=== PATIENT | male | born 1945 | race Caucasian/White ===

== ENCOUNTER 2017-07-06 21:42 | Observation (INO) | payer MEDICARE, OTHER ==
[~2017-07-06] VITALS: Ht 175.3 cm; Wt 51.3 kg
[2017-07-06] MEDS ORDERED: NS IV 1000 ML 1,000 ML IV ONE (21:52)
[2017-07-06 21:59] LABS: BASOPHILS % (AUTO) 0 % (0-10); EOSINOPHILS % (AUTO) 0 % (0-10); LYMPHOCYTES # (AUTO) 0.9 X 10^3 (1.0-4.0); LYMPHOCYTES % (AUTO) 8 % (12-44); MEAN CORPUSCULAR HEMOGLOBIN 27 PG (25-34); MEAN CORPUSCULAR HGB CONC 33 G/DL (32-36); MEAN CORPUSCULAR VOLUME 84 FL (80-99); MEAN PLATELET VOLUME 10.9 FL (7.4-10.4); MONOCYTES # (AUTO) 0.7 X 10^3 (0.0-1.0); MONOCYTES % (AUTO) 7 % (0-12); NEUTROPHILS # (AUTO) 9.1 X 10^3 (1.8-7.8); NEUTROPHILS % (AUTO) 85 % (42-75); PLATELET COUNT 401 10^3/uL (130-400); RED BLOOD COUNT 2.28 10^6/uL (4.35-5.85); RED CELL DISTRIBUTION WIDTH 13.7 % (10.0-14.5); WHITE BLOOD COUNT 10.7 10^3/uL (4.3-11.0)
[2017-07-06 22:08] LABS: INR 1.2 (0.8-1.4); PROTHROMBIN TIME PATIENT 14.8 SEC (12.2-14.7)
[2017-07-06 22:14] LABS: ANION GAP 17 MMOL/L (5-14); BLOOD UREA NITROGEN 17 MG/DL (7-18); BUN/CREATININE RATIO 18; CALCIUM 8.6 MG/DL (8.5-10.1); CARBON DIOXIDE 18 MMOL/L (21-32); CHLORIDE 88 MMOL/L (98-107); CREATININE SERUM 0.93 MG/DL (0.60-1.30); GFR ESTIMATED > 60; GLUCOSE 193 MG/DL (70-105); POTASSIUM 3.9 MMOL/L (3.6-5.0)
[2017-07-06 22:19] LABS: SODIUM 123 MMOL/L (135-145)
[2017-07-06 23:15] VITALS: BP 117/47
[2017-07-06 23:59] VITALS: BP 110/57
[2017-07-07] VITALS (11 sets, daily range): BP systolic 100–125; BP diastolic 57–77
[2017-07-07] MEDS: NS IV 1000 ML 1,000 ML IV SCH ×2 (01:45→06:11)
--- NOTE | 2017-07-07 03:43 | ED EENT ---
History of Present Illness General Chief Complaint: Dental Problems/Pain Stated Complaint: POST OP BLEED,SYNCOPE,ORAL CANCER,ANEMIA Nursing Triage Note: PT HAD BIOPSY FOR ORAL CANCER AT 1 WEEK AGO. HE BEGAN BLEEDING PROFUSELY AT APPROX 5 TONIGHT. HE REPORTS HE FELT FAINT WALKING TO THE BATHROOM ET FELL. NO LOC. TO ER PER EMS. DENIES HEAD INJURY. Source: patient (PT COMMUNINCATES BY WRITING OR BY NODDING HEAD YES/NO), EMS, other (DR. OTT AND DR. BAEZA), spouse Exam Limitations: physical impairment History of Present Illness Time seen by provider: 21:44 Initial Comments PT ARRIVES VIA EMS FROM HOME--DR. OTT AND DR. 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 PT IS REPORTEDLY SUPPOSED TO HAVE CHEMO NEXT WEEK TONIGHT, HE WAS FOUND BY HIS ON THE FLOOR, PASSED OUT, WITH PROFUSE BLEEDING FROM HIS MOUTH--REPORTEDLY, THE BLEEDING BEGAN BEFORE HE PASSED OUT-- WAS WALKING TO THE BATHROOM AND HE FELT FAINT AND FELL/PASSED OUT ON THE FLOOR. OCCURRED AROUND 5 TONIGHT PT WITH LARGE AMOUNT OF BLOOD AT THE SCENE--EMS ESTIMATE AT LEAST 250 ML OF BLOOD ON THE FLOOR, PLUS UNKNOWN AMOUNT OF BLOOD IN THE TOILET, AND ON PT PT ALSO HAS CLOTHING SATURATED WITH BLOOD AND MULTIPLE LARGE BLOOD CLOTS ON HIS CLOTHING, WELL HIS ENTIRE FACE PT DENIES PAIN ANYWHERE NO HEADACHE NO VISION CHANGES DOES HAVE SOME DIZZINESS-HAD BEFORE HE PASSED OUT PT IS NOT ON ASPIRIN OR BLOOD THINNERS. NO HISTORY OF BLEEDING PROBLEMS. PCP: DR. OTT Allergies and Home Medications Allergies Coded Allergies: No Known Drug Allergies (Unverified , 07/06/17) Home Medications No Active Prescriptions or Reported Meds Review of Systems Constitutional: see HPI, dizziness (SYNCOPE) Eyes: No Symptoms Reported Ears: No Symptoms Reported Nose: no symptoms reported Mouth: see HPI Throat: no symptoms reported Respiratory: no symptoms reported Cardiovascular: see HPI, No chest pain, No palpitations, syncope Gastrointestinal: no symptoms reported, No nausea, No vomiting Musculoskeletal: no symptoms reported Skin: no symptoms reported Neurological: See HPI (SYNCOPE), Denies Headache, Denies Numbness, Denies Paresthesia, Denies Seizure, Denies Tingling, Denies Tremors, Denies Weakness Hematologic/Lymphatic: See HPI Immunological/Allergic: no symptoms reported Past Lclpbly-Pmflkx-Wdmfzi Hx Patient Social History Alcohol Use: Rarely Uses Number of Drinks Today: 0 Recreational Drug Use: No Smoking Status: Never a Smoker Recent Foreign Travel: No Contact w/Someone Who Travel: No Recent Infectious Disease Expo: No Recent Hopitalizations: No Seasonal Allergies Seasonal Allergies: No Surgeries History of Surgeries: Yes (TONGUE BIOPSY) Respiratory History of Respiratory Disorde: No Currently Using CPAP: No Cardiovascular History of Cardiac Disorders: No Neurological History of Neurological Disord: No Genitourinary History of Genitourinary Disor: No Gastrointestinal History of Gastrointestinal Di: No Musculoskeletal History of Musculoskeletal Dis: No Endocrine History of Endocrine Disorders: No HEENT History of HEENT Disorders: Yes (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) 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 Did You Recieve Any Treatments: Yes (BIOPSY) Type of Tx Receive: Surgical Intervention Cancer Comment: SCHEDULED FOR CHEMO AND RADIATION IN FUTURE Psychosocial History of Psychiatric Problem: No Integumentary History of Skin or Integumenta: No Blood Transfusions History of Blood Disorders: No Adverse Reaction to a Blood Tr: No Family Medical History Family Medial History: Cardiac disorder 19 FATHER Physical Exam Vital Signs Vital Sign - Last 12Hours 07/06/17 07/06/17 21:46 23:59 Temp 95.3 Pulse 82 Resp 14 B/P (MAP) 110/53 (72) Pulse Ox 100 O2 Delivery Nasal Cannula O2 Flow Rate 2.00 General Appearance: thin, other (PALE, FACE AND CLOTHING SATURATED WITH BLOOD AND MULTIPLE LARGE CLOTS. SOMEWHAT LETHARGIC) Eyes: bilateral eye normal inspection, bilateral eye PERRL, bilateral eye EOMI Mouth/Throat: other (PT IS NOT TALKING, BUT IS COMMUNICATING BY WRITING. LARGE AMOUNT OF BLOOD IN MOUTH. BIOPSY SITE TO UNDERSIDE OF RIGHT SIDE OF TONGUE IDENTIFIED. NO ACTIVE BLEEDING AT THIS TIME. MOUTH CLEARED BY GENTLE SWISHING WITH STERILE WATER, AND BY GENTLE SUCTION. 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, no motor/sensory deficits, alert Skin: warm/dry, pallor Progress/Results/Core Measures Results/Orders Lab Results Laboratory Tests Test 07/06/17 21:45 Range/Units White Blood Count 10.7 4.3-11.0 10^3/uL Red Blood Count 2.28 L 4.35-5.85 10^6/uL Hemoglobin 6.2 *L 13.3-17.7 G/DL Hematocrit 19 *L 40-54 % Mean Corpuscular Volume 84 80-99 FL Mean Corpuscular Hemoglobin 27 25-34 PG Mean Corpuscular Hemoglobin Concent 33 32-36 G/DL Red Cell Distribution Width 13.7 10.0-14.5 % Platelet Count 401 H 130-400 10^3/uL Mean Platelet Volume 10.9 H 7.4-10.4 FL Neutrophils (%) (Auto) 85 H 42-75 % Lymphocytes (%) (Auto) 8 L 12-44 % Monocytes (%) (Auto) 7 0-12 % Eosinophils (%) (Auto) 0 0-10 % Basophils (%) (Auto) 0 0-10 % Neutrophils # (Auto) 9.1 H 1.8-7.8 X 10^3 Lymphocytes # (Auto) 0.9 L 1.0-4.0 X 10^3 Monocytes # (Auto) 0.7 0.0-1.0 X 10^3 Eosinophils # (Auto) 0.0 0.0-0.3 10^3/uL Basophils # (Auto) 0.0 0.0-0.1 10^3/uL Prothrombin Time 14.8 H 12.2-14.7 SEC INR Comment 1.2 0.8-1.4 Activated Partial Thromboplast Time 28 24-35 SEC Sodium Level 123 *L 135-145 MMOL/L Potassium Level 3.9 3.6-5.0 MMOL/L Chloride Level 88 L 98-107 MMOL/L Carbon Dioxide Level 18 L 21-32 MMOL/L Anion Gap 17 H 5-14 MMOL/L Blood Urea Nitrogen 17 7-18 MG/DL Creatinine 0.93 0.60-1.30 MG/DL Estimat Glomerular Filtration Rate > 60 BUN/Creatinine Ratio 18 Glucose Level 193 H 70-105 MG/DL Calcium Level 8.6 8.5-10.1 MG/DL My Orders Orders - BRODY GANNON DO Saline Lock/Iv-Start (07/06/17 21:52) Basic Metabolic Panel (07/06/17 21:52) Cbc With Automated Diff (07/06/17 21:52) Protime With Inr (07/06/17 21:52) Partial Thromboplastin Time (07/06/17 21:52) Saline Lock/Iv-Start (07/06/17 21:52) Saline Lock/Iv-Start (07/06/17 21:52) Ns Iv 1000 Ml (Sodium Chloride 0.9%) (07/06/17 21:52) Orthostatic Vital Signs (Adult (07/06/17 21:52) Red Cells Leukocytes Reduced (07/06/17 22:07) Type And Screen (07/06/17 22:07) Medications Given in ED Current Medications Medications Dose Ordered Sig/Kobe Route Start Time Stop Time Status Last Admin Dose Admin Sodium Chloride 1,000 ml @ 0 mls/hr Q0M ONCE IV 07/06/17 21:52 07/06/17 21:54 DC 07/06/17 22:22 1,000 MLS/HR Vital Signs/I&O Vital Sign - Last 12Hours 07/06/17 07/06/17 07/06/17 07/07/17 21:46 23:35 23:59 00:20 Temp 95.3 96.8 97.1 Pulse 82 60 69 66 Resp B/P (MAP) 110/53 (72) 110/57 100/59 Pulse Ox 100 100 O2 Delivery Nasal Cannula Nasal Cannula O2 Flow Rate 2.00 2.00 07/07/17 07/07/17 07/07/17 07/07/17 00:30 01:00 01:41 02:12 Temp 96.4 96.4 Pulse 58 59 59 Resp 17 B/P (MAP) 101/58 109/57 Pulse Ox 100 100 O2 Delivery Nasal Cannula Nasal Cannula Nasal Cannula O2 Flow Rate 2.00 2.00 2.00 07/07/17 02:30 Temp 96.5 Pulse 60 Resp 17 B/P (MAP) 111/61 Pulse Ox 98 O2 Delivery Nasal Cannula O2 Flow Rate 2.00 Blood Pressure Mean: 78 Progress Note : Progress Note NO DETERIORATION IN PT'S CONDITION NO RE-BLEEDING NOTED VITALS REMAINED STABLE Departure Communication (Admissions) Progress Notes DISCUSSED WITH DR. OTT, PRESENT IN ER ON PT'S ARRIVAL. HE ACCEPTS PT FOR ADMIT. WILL CONSULT DR. ETIENNE [id number]--SPOKE WITH Taty COUGHLIN NP MAINTENANCE PLUMBER FOR DR. ETIENNE. INFORMED HER OF CONSULT. HE WILL SEE IN AM, UNLESS BLEEDING STARTS AGAIN. Impression Impression: Primary Impression: POST OP BLEEDING FROM TONGUE Additional Impressions: Squamous cell cancer of tongue Anemia due to acute blood loss SYNCOPE DUE TO BLOOD LOSS/VOLUME DEPLETION Hyponatremia Hyperglycemia Disposition: ADMITTED INPATIENT Condition: Stable Admissions Decision to Admit Reason: Admit from ER (General) Decision to Admit/Date: Jul 06, 2017 Time/Decision to Admit Time: 22:00 Departure-Patient Inst. Referrals: FABIAN OTT DO (PCP/Family) Primary Care Physician Scripts No Active Prescriptions or Reported Meds BRODY GANNON DO Jul 07, 2017 03:43
[2017-07-07 06:32] LABS: ALANINE AMINOTRANSFERASE 13 U/L (0-55); ALBUMIN 2.5 GM/DL (3.2-4.5); ANION GAP 9 MMOL/L (5-14); ASPARTATE AMINO TRANSFERASE 12 U/L (5-34); BILIRUBIN,TOTAL 0.7 MG/DL (0.1-1.0); BLOOD UREA NITROGEN 19 MG/DL (7-18); BUN/CREATININE RATIO 28; CALCIUM 7.9 MG/DL (8.5-10.1); CARBON DIOXIDE 22 MMOL/L (21-32); CHLORIDE 96 MMOL/L (98-107); CREATININE SERUM 0.69 MG/DL (0.60-1.30); GFR ESTIMATED > 60; GLUCOSE 93 MG/DL (70-105); POTASSIUM 4.1 MMOL/L (3.6-5.0); SODIUM 127 MMOL/L (135-145); TOTAL PROTEIN 4.2 GM/DL (6.4-8.2)
[2017-07-07 06:41] LABS: BASOPHILS % (AUTO) 0 % (0-10); EOSINOPHILS % (AUTO) 0 % (0-10); LYMPHOCYTES # (AUTO) 0.4 X 10^3 (1.0-4.0); LYMPHOCYTES % (AUTO) 4 % (12-44); MEAN CORPUSCULAR HEMOGLOBIN 27 PG (25-34); MEAN CORPUSCULAR HGB CONC 34 G/DL (32-36); MEAN CORPUSCULAR VOLUME 81 FL (80-99); MEAN PLATELET VOLUME 9.8 FL (7.4-10.4); MONOCYTES # (AUTO) 0.7 X 10^3 (0.0-1.0); MONOCYTES % (AUTO) 8 % (0-12); NEUTROPHILS # (AUTO) 8.4 X 10^3 (1.8-7.8); NEUTROPHILS % (AUTO) 88 % (42-75); PLATELET COUNT 270 10^3/uL (130-400); RED BLOOD COUNT 2.49 10^6/uL (4.35-5.85); RED CELL DISTRIBUTION WIDTH 14.4 % (10.0-14.5); WHITE BLOOD COUNT 9.6 10^3/uL (4.3-11.0)
--- NOTE | 2017-07-07 06:54 | Progress Note-Standard ---
Standard Progress Note Progress Notes/Assess & Plan Date Seen by Provider: Jul 07, 2017 Time Seen by Provider: 06:30 Progress/Assessment & Plan ENT-Meri patient seen and evaluated Significant bleed last PM- Hgb-6.8 despite 2 units of pRBC's No active bleeding seen jigna admission Exam: Oral Cavity-tongue enalrged-biopsy site seen laterally on right airway intact-on palpation extension of tumor felt in neck as well-large concerend about erosion into a large vessel or potentially GI bleed as well will contacat [facility] for records-have no idea what HGB was to start with overall-would be best to see if we can get back to [facility]-if there is erosion into a large vessel there is nothing that can be done here locally MARCELLA ETIENNE MD Jul 07, 2017 6:54 am
[2017-07-07] MEDS ORDERED: INFLUENZA TRIvalent 2017-2018 0.5 ML/45 MCG SYR IM ONE (07:15)
--- NOTE | 2017-07-07 07:59 | History & Physicial ---
History of Present Illness History of Present Illness Reason for visit/HPI patient episode of syncope with blood coming from his mouth. EMS stated he was 250 mils approximately.. Patient sent to emergency room. Patient's hemoglobin 6.2. Week ago patient's hemoglobin was 9.8. Patient has history of squamous cell tongue cancer. Patient seen by ENT. ENT and myself feel patient needs to go to a tertiary center. We'll call [facility] for transfer Date of Admission Jul 06, 2017 at 22:00 Time Seen by Provider: 07:45 I consulted on this patient on 07/07/17 07:54 Attending Physician Carlos Ott DO Admitting Physician Carlos Ott DO Consult Allergies and Home Medications Allergies Coded Allergies: No Known Drug Allergies (Unverified , 07/06/17) Home Medications No Active Prescriptions or Reported Meds Past Fpthtdw-Xufhch-Yddjqg Hx Patient Social History Marrital Status: Employed/Student: unemployed Alcohol Use: Rarely Uses Number of Drinks Today: 0 Recreational Drug Use: No Smoking Status: Never a Smoker Physical Abuse Screen: No Sexual Abuse: No Recent Foreign Travel: No Contact w/other who traveled: No Recent Hopitalizations: No Recent Infectious Disease Expo: No Seasonal Allergies Seasonal Allergies: No Surgeries Yes (TONGUE BIOPSY) Respiratory No Currently Using CPAP: No Cardiovascular No Neurological No Genitourinary No Gastrointestinal No Musculoskeletal No Endocrine History of Endocrine Disorders: No HEENT History of HEENT Disorders: Yes (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) Cancer Yes (TONGUE) Oral Did You Recieve Any Treatments: Yes (BIOPSY) Type of Treatment: Surgical Intervention Cancer Comment: SCHEDULED FOR CHEMO AND RADIATION IN FUTURE Psychosocial History of Psychiatric Problem: No Integumentary History of Skin or Integumenta: No Blood Transfusions History of Blood Disorders: No Adverse Reaction to a Blood Tr: No Family Medical History Family Hx: Cardiac disorder 19 FATHER Constitutional: malaise, weakness, other (lung cancer) EENTM: other (tongue cancer) Respiratory: no symptoms reported Cardiovascular: no symptoms reported Gastrointestinal: no symptoms reported Genitourinary: no symptoms reported Physical Exam Vital Signs Vital Sign - Last 12Hours 07/06/17 07/06/17 07/06/17 21:46 23:00 23:15 Temp 95.3 Pulse 82 Resp 14 B/P (MAP) 110/53 (72) Pulse Ox 98 O2 Delivery Room Air O2 Flow Rate 2.00 Capillary Refill : Less Than 3 Seconds General Appearance: No Apparent Distress, Thin Eyes: Bilateral Eye Normal Inspection HEENT: Other (abnormal time, cervical lymph node) Neck: Other (cervical lymph nodes) Respiratory: Chest Non Tender, Lungs Clear, No Accessory Muscle Use, No Respiratory Distress Cardiovascular: Regular Rate, Rhythm, No Murmur Gastrointestinal: Non Tender, Soft Assessment/Plan Assessment and Plan postop bleed. Anemia. Squamous cell cancer of tongue Plan to discharge to [facility] transfer Problems: Clinical Quality Measures DVT/VTE Risk/Contraindication: Risk Factor Score Per Nursin RFS Level Per Nursing on Admit: 4+=Very High CARLOS OTT DO Jul 07, 2017 07:59
[2017-07-07] MEDS ORDERED: NS (IVPB) 250 ML ONE (08:02)
[2017-07-07] MEDS ORDERED: NS (IVPB) 250 ML IV ONE (08:45)
--- NOTE | 2017-07-07 09:32 | Speech Therapy Progress Note ---
Therapy Progress Note Speech pathology consult received and chart reviewed. The speech pathologist presented to the patient's room. The patient's RN requested the speech pathologist not complete swallow evaluation as the patient may be intubated and transferred to . The swallow consult will be canceled per RN request. If a swallow evaluation is appropriate in the future, please reconsult speech pathology. LISETTE SUAREZ Jul 07, 2017 09:32
--- NOTE | 2017-07-11 07:28 | Clinic Account Progress/Dx ---
Clinic Account Progress/Dx DIAGNOSIS: Time Seen by Provider: 07:10 syncope. Lung cancer area Anemia. Squamous cell carcinoma tongue. Hyponatremia. bleed from an unspecified site. Recent biopsy of tongue FABIAN OTT DO Jul 11, 2017 07:28
== END 2017-07-07 12:30 | disposition short-term general hospital (02) ==
LOC: EDUNIT# 21:42 → ER 21:43 → UNDOADMOB 22:00 → ICU 22:00 → UNDODISOB 07-07 12:36
PROVIDERS: ADMIT Family Medicine; ATTEND Family Medicine
DX: K91.840 Postprocedural hemorrhage of a digestive system organ or structure following a digestive system procedure (principal); R55 Syncope and collapse; C34.90 Malignant neoplasm of unspecified part of unspecified bronchus or lung; D62 Acute posthemorrhagic anemia; C02.9 Malignant neoplasm of tongue, unspecified; E87.1 Hypo-osmolality and hyponatremia
CPT/HCPCS: 36415; 80048; 80053; 85014; 85018; 85025; 85610; 85730; 86850; 86900; 86901; 86920; 96360

== ENCOUNTER 2017-08-08 08:02 | Emergency (ER) | payer MEDICARE ==
[~2017-08-08] VITALS: Ht 175.3 cm; Wt 49.4 kg
[2017-08-08 08:18] VITALS: BP 122/79
--- NOTE | 2017-08-08 08:22 | ED EENT ---
History of Present Illness General Stated Complaint: MOUTH BLEEDING Source: patient, spouse Exam Limitations: no limitations History of Present Illness Time seen by provider: 08:08 Initial Comments Patient presents to ER by EMS with chief complaint that about 15 minutes prior to EMSs arrival the patient was getting up to the bathroom and noticed blood coming from his mouth. 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 2 weeks ago he had a tracheostomy and PEG tube placed at the cancer center where his oncologist and surgeon are located. EMS reports the patient's vitals are normal and required no interventions other than a bag spit in and the bleeding became his hemostatic on route. Patient reports 2 weeks ago he had labs drawn that demonstrated hemoglobin of 8.1. He has no history of coronary disease, chest pain, shortness of breath presently. His next appointment is in 3 days at and [facility]. He has no nausea or vomiting. No cough or shortness of breath. Patient is on chemotherapy and reports his last dose was about 4 to 5 days ago. Allergies and Home Medications Allergies Coded Allergies: No Known Drug Allergies (Unverified , 07/06/17) Home Medications Lorazepam 1 Mg Tablet, 1 MG PO, (Reported) Ondansetron 4 Mg Tab.rapdis, 4 MG PO, (Reported) Review of Systems Constitutional: No chills, No diaphoresis, No fever Eyes: Denies Blurred Vision, Denies Drainage Ears: Denies Dizziness, Denies Pain Nose: denies clots, denies congestion Mouth: see HPI, clots, swelling Throat: denies pain, denies swelling, denies painful swallowing, other ( fenestrated trach) Respiratory: No cough, No short of breath Cardiovascular: No chest pain, No Hx of Intervention, No vascular heart diseas Gastrointestinal: No abdominal pain, No constipation, No diarrhea, No nausea, No vomiting Past Qibufvq-Snxkng-Whzkcx Hx Patient Social History Alcohol Use: Occasionally Uses (none recently) Alcohol Beverage of Choice: Wine Recreational Drug Use: No Smoking Status: Never a Smoker Recent Hopitalizations: No Seasonal Allergies Seasonal Allergies: No Surgeries History of Surgeries: Yes (TONGUE BIOPSY) Respiratory History of Respiratory Disorde: No Currently Using CPAP: No Cardiovascular History of Cardiac Disorders: No Neurological History of Neurological Disord: No Genitourinary History of Genitourinary Disor: No Gastrointestinal History of Gastrointestinal Di: No Musculoskeletal History of Musculoskeletal Dis: No Endocrine History of Endocrine Disorders: No HEENT History of HEENT Disorders: Yes (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) 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 Did You Recieve Any Treatments: Yes Type of Tx Receive: Surgical Intervention Psychosocial History of Psychiatric Problem: No Integumentary History of Skin or Integumenta: No Blood Transfusions History of Blood Disorders: No Adverse Reaction to a Blood Tr: No Family Medical History Family Medial History: Cardiac disorder 19 FATHER Physical Exam Vital Signs Vital Sign - Last 12Hours 08/08/17 08:18 Temp 98.3 Pulse 77 Resp 20 B/P (MAP) 122/79 (93) Pulse Ox 97 General Appearance: no apparent distress, thin Eyes: bilateral eye normal inspection, bilateral eye PERRL, bilateral eye EOMI Ears: bilateral ear auricle normal, bilateral ear canal normal Nose: normal inspection, active bleeding (slow), No discharge, No dried blood, other (friable nasal mucosa) Mouth/Throat: No excessive drooling, other (blood clots present in the oral cavity with a large subungual tumor and appears hemostatic at this time.) Neck: non-tender, supple, other (fenestrated tracheostomy in place) Cardiovascular: normal peripheral pulses, regular rate, rhythm, other (trace bilateral ankle edema) Respiratory: lungs clear, normal breath sounds, no respiratory distress, no accessory muscle use, other (no cough during examination) Gastrointestinal: soft, tenderness (mild to palpation around the PEG tube site) , other (pink recent percutaneous gastrostomy tube placement with scant amount of normal drainage. No erythema, induration or malodor.) Neurologic/Psychiatric: alert, normal mood/affect, oriented x 3 Progress/Results/Core Measures Results/Orders Lab Results Laboratory Tests Test 08/08/17 08:14 Range/Units White Blood Count 1.8 L 4.3-11.0 10^3/uL Red Blood Count 2.89 L 4.35-5.85 10^6/uL Hemoglobin 7.7 L 13.3-17.7 G/DL Hematocrit 24 L 40-54 % Mean Corpuscular Volume 83 80-99 FL Mean Corpuscular Hemoglobin 27 25-34 PG Mean Corpuscular Hemoglobin Concent 32 32-36 G/DL Red Cell Distribution Width 16.7 H 10.0-14.5 % Platelet Count 308 130-400 10^3/uL Mean Platelet Volume 10.0 7.4-10.4 FL Neutrophils (%) (Auto) 71 42-75 % Lymphocytes (%) (Auto) 12 12-44 % Monocytes (%) (Auto) 11 0-12 % Eosinophils (%) (Auto) 5 0-10 % Basophils (%) (Auto) 2 0-10 % Neutrophils # (Auto) 1.3 L 1.8-7.8 X 10^3 Lymphocytes # (Auto) 0.2 L 1.0-4.0 X 10^3 Monocytes # (Auto) 0.2 0.0-1.0 X 10^3 Eosinophils # (Auto) 0.1 0.0-0.3 10^3/uL Basophils # (Auto) 0.0 0.0-0.1 10^3/uL Prothrombin Time 12.6 12.2-14.7 SEC INR Comment 0.9 0.8-1.4 Activated Partial Thromboplast Time 33 24-35 SEC Sodium Level 134 L 135-145 MMOL/L Potassium Level 3.9 3.6-5.0 MMOL/L Chloride Level 102 98-107 MMOL/L Carbon Dioxide Level 24 21-32 MMOL/L Anion Gap 8 5-14 MMOL/L Blood Urea Nitrogen 12 7-18 MG/DL Creatinine 0.64 0.60-1.30 MG/DL Estimat Glomerular Filtration Rate > 60 BUN/Creatinine Ratio 19 Glucose Level 87 70-105 MG/DL Calcium Level 8.1 L 8.5-10.1 MG/DL Total Bilirubin 0.2 0.1-1.0 MG/DL Aspartate Amino Transf (AST/SGOT) 15 5-34 U/L Alanine Aminotransferase (ALT/SGPT) 15 0-55 U/L Alkaline Phosphatase 76 40-136 U/L Total Protein 5.8 L 6.4-8.2 GM/DL Albumin 2.9 L 3.2-4.5 GM/DL My Orders Orders - KASIA RICHARDS Cbc With Automated Diff (08/08/17 08:15) Comprehensive Metabolic Panel (08/08/17 08:15) Protime With Inr (08/08/17 08:15) Partial Thromboplastin Time (08/08/17 08:15) Type And Screen (08/08/17 08:15) Oxymetazoline 0.05% Nasal [place] (Afrin 0. (08/08/17 11:36) Vital Signs/I&O Vital Sign - Last 12Hours 08/08/17 08:18 Temp 98.3 Pulse 77 Resp 20 B/P (MAP) 122/79 (93) Pulse Ox 97 Progress Note #1: Time: 08:23 Progress Note Patient's wounds appears to be hemostatic now. The patient relates a prior bleeding episode before the biopsy that was very severe and he had to see his oral surgeon to get the bleeding under control. Because his hemoglobin was so borderline 2 weeks ago were going to recheck it as well as platelets and PT/ INR. He is not on any blood thinners presently and he does have ondansetron prescribed to him but he has not had to use any yet. If nothing major has change in his lab work and he still hemostatic we may let him follow up outpatient at his prescribed appointment in 3 days. If the bleeding restarts and were unable to control it locally then we'll have to send him back to [facility]. Progress Note #2: Time: 08:33 Progress Note Hemoglobin is 7.7 which is possibly within the margin of error for 2 weeks ago being 8.1. He doesn't have any cardiac issues our goal for transfusions should probably be below 7.0. White blood cell count of 1.8 is probably related to his ongoing chemotherapy. If he remains asymptomatic and hemostatic during his ER stay we'll have him follow up outpatient in 3 days at his scheduled appointment. Progress Note #3: Time: 09:36 Progress Note Upon reevaluation discussed labs patient did not have his speaking valve on was still able to speak and he was noted that his trachea was a little right of midline. Respiratory therapy examined him and tried to pass a suction catheter but it would not go past the end of the trach tube. If the trach tube is displaced from the trachea regarding to get anesthesia to come down and try and help us replace it if we can't get it done will talk to either general surgery or ENT. Progress Note #4: Time: 11:[address] Scott's assistance we got the trach replaced easily on first attempt with a new 6 fenestrated trach. We will send home the inner cannulas and obturator in a biohazard bag with the patient. We'll put him on humidified call her right now. On reexamination he seems to be having some bleeding from his anterior chamber of his left knee air however it is all going down the back of his throat. It's just a slow ooze at this time so organ a give him a couple puffs of Afrin see if we can get slow down and observe him on him in a fire. He says he's pulse to be on a humidified trach collar at home but he did not last night and is asking us to write instructions for his home health nurse how to use the humidified air. He says he has the trach collar, humidifier and a compressor. He has not desatted since she's been here and does not use oxygen at home. We' ll plan to observe him a little longer after putting the Afrin on board see if we can get his bleeding to stop and then if we can we'll get him to go home some nasal saline and humidified air. As far as his hemoglobin would have him follow up tomorrow or Tuesday with Dr. Ott in the clinic to have his hemoglobin rechecked and also make sure he is not having any other issues. Consults Consults : Consulting Physician: BINDU SCOTT DO Consults Notes Discussed case with Dr. Scott and he had some issues due to increment whether getting in but obese ear probably around 10:30, one half hour and will if possible replace the trach tube. We have a new trach tube, airway cart at the bedside. The patient is stable with normal vital signs complaint shortness of breath or coughing. Departure Impression Impression: Primary Impression: Oral hemorrhage Additional Impressions: Oral-mouth cancer Anemia associated with acute blood loss Tracheostomy malfunction Anterior epistaxis Disposition: HOME, SELF-CARE Condition: Improved Departure-Patient Inst. Decision time for Depature: 13:00 Referrals: FABIAN OTT DO (PCP/Family) Primary Care Physician Patient Instructions: How to Care for a Tracheostomy Add. Discharge Instructions: If you're having any bleeding from the nose or in the mouth go ahead and take 2 puffs of the Afrin up each nostril every 4 hours as needed. Use nasal saline as necessary to keep your nose and upper airways moist. When you're at home use the trach collar with humidifier for the next several weeks or your tissues a recovering. Follow-up the next 1-2 days with her primary care physician and have your hemoglobin rechecked. 2 weeks ago was 8.1 mg/dL and today was 7.7 mg/ dL. You have bleeding that she cannot get under control he may return to the ER and we will evaluate and manage it. If you have other airway issues please return to the ER otherwise plan on following up in the next day or 2 with your primary care doctor. Please asked her home health care nurse to make sure that you have plenty of bottles of humidifier water and that you're compressor for the trach collar is in place whenever you are at home. Room air is appropriate. A bubble or jet humidifier would be appropriate across either a T-tube or more preferably a trach collar. Copy Copies To 1: FABIAN OTT TITUS J Aug 08, 2017 08:22
[2017-08-08 08:24] LABS: BASOPHILS % (AUTO) 2 % (0-10); EOSINOPHILS # (AUTO) 0.1 10^3/uL (0.0-0.3); EOSINOPHILS % (AUTO) 5 % (0-10); HEMATOCRIT 24 % (40-54); HEMOGLOBIN 7.7 G/DL (13.3-17.7); LYMPHOCYTES # (AUTO) 0.2 X 10^3 (1.0-4.0); LYMPHOCYTES % (AUTO) 12 % (12-44); MEAN CORPUSCULAR HEMOGLOBIN 27 PG (25-34); MEAN CORPUSCULAR HGB CONC 32 G/DL (32-36); MEAN CORPUSCULAR VOLUME 83 FL (80-99); MONOCYTES # (AUTO) 0.2 X 10^3 (0.0-1.0); MONOCYTES % (AUTO) 11 % (0-12); NEUTROPHILS # (AUTO) 1.3 X 10^3 (1.8-7.8); NEUTROPHILS % (AUTO) 71 % (42-75); PLATELET COUNT 308 10^3/uL (130-400); RED BLOOD COUNT 2.89 10^6/uL (4.35-5.85); RED CELL DISTRIBUTION WIDTH 16.7 % (10.0-14.5); WHITE BLOOD COUNT 1.8 10^3/uL (4.3-11.0)
[2017-08-08] MEDS ORDERED: LORA-405 PO (08:31)
[2017-08-08] MEDS ORDERED: ONDA4TAB8 PO (08:31)
[2017-08-08 08:33] LABS: INR 0.9 (0.8-1.4); PROTHROMBIN TIME PATIENT 12.6 SEC (12.2-14.7)
[2017-08-08 08:44] LABS: ALANINE AMINOTRANSFERASE 15 U/L (0-55); ALBUMIN 2.9 GM/DL (3.2-4.5); ALKALINE PHOSPHATASE 76 U/L (40-136); BILIRUBIN,TOTAL 0.2 MG/DL (0.1-1.0); BUN/CREATININE RATIO 19; CALCIUM 8.1 MG/DL (8.5-10.1); CARBON DIOXIDE 24 MMOL/L (21-32); CHLORIDE 102 MMOL/L (98-107); CREATININE SERUM 0.64 MG/DL (0.60-1.30); GFR ESTIMATED > 60; GLUCOSE 87 MG/DL (70-105); POTASSIUM 3.9 MMOL/L (3.6-5.0); SODIUM 134 MMOL/L (135-145); TOTAL PROTEIN 5.8 GM/DL (6.4-8.2)
[2017-08-08] MEDS ORDERED: OXYMETAZOLINE (AFRIN) 0.05% NA 15 ML BTL STA (11:36)
--- NOTE | 2017-08-08 23:34 | OPERATIVE REPORT ---
DATE OF SERVICE: PREOPERATIVE DIAGNOSIS: Dislodged tracheostomy tube. POSTOPERATIVE DIAGNOSIS: Dislodged tracheostomy tube. PROCEDURE: Tracheostomy exchange. SURGEON: Mykel Ramos DO. [employer]: None. ANESTHESIA: None. SPECIMENS: None. BLOOD LOSS: None. 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 FINDINGS: The patient had a tracheostomy tube exchanged without any difficulty. PROCEDURE NOTE: The patient was in his bed and after setting everything up, carefully took off the trach collar off of the trach and then pulled the tracheostomy tube out. It was actually in the subcutaneous tissue, not in the trachea. There was actually what looked like almost a blind tract going distally, but you could actually see the tracheal rings and then a small hole, which looks like it was closing over, which was actually almost up from where this depression from the tracheostomy opening was. I used a 6-[place]ian fenestrated tracheal tube, the same one add-in and actually had it rotated towards facing up posterior to the small hole and then rotated and pushed it down. It went right into the trachea. He immediately was getting breath out of it, suctioned this very well and then put the tracheostomy collar in place. He tolerated this well and then allowed the respiratory therapy to take over. Job ID: [id number] DocumentID: [id number] Dictated Date: 08/08/2017 13:10:08 Sandwich Wrapper Date: 08/08/2017 23:34:04 Dictated By: MYKEL RAMOS DO
== END 2017-08-08 13:45 | disposition home or self-care (01) ==
LOC: EDUNIT# 08:02 → ER 08:03
DX: J95.03 Malfunction of tracheostomy stoma (principal); C02.9 Malignant neoplasm of tongue, unspecified; D62 Acute posthemorrhagic anemia; R04.0 Epistaxis
CPT/HCPCS: 36415; 80053; 85025; 85610; 85730; 86850; 86900; 86901; 99283

== ENCOUNTER 2017-08-09 21:44 | Emergency (ER) | payer MEDICARE, OTHER ==
[~2017-08-09] VITALS: Ht 175.3 cm; Wt 49.4 kg
[~2017-08-09 21:44] MED LIST: LORA-405 PO; ONDA4TAB8 PO
[2017-08-09 22:21] LABS: BASOPHILS % (AUTO) 1 % (0-10); EOSINOPHILS # (AUTO) 0.1 10^3/uL (0.0-0.3); EOSINOPHILS % (AUTO) 6 % (0-10); HEMATOCRIT 23 % (40-54); HEMOGLOBIN 7.4 G/DL (13.3-17.7); LYMPHOCYTES # (AUTO) 0.3 X 10^3 (1.0-4.0); LYMPHOCYTES % (AUTO) 15 % (12-44); MEAN CORPUSCULAR HEMOGLOBIN 27 PG (25-34); MEAN CORPUSCULAR HGB CONC 32 G/DL (32-36); MEAN CORPUSCULAR VOLUME 83 FL (80-99); MONOCYTES # (AUTO) 0.2 X 10^3 (0.0-1.0); MONOCYTES % (AUTO) 10 % (0-12); NEUTROPHILS # (AUTO) 1.3 X 10^3 (1.8-7.8); NEUTROPHILS % (AUTO) 68 % (42-75); PLATELET COUNT 279 10^3/uL (130-400); RED BLOOD COUNT 2.78 10^6/uL (4.35-5.85); RED CELL DISTRIBUTION WIDTH 16.7 % (10.0-14.5); WHITE BLOOD COUNT 1.9 10^3/uL (4.3-11.0)
[2017-08-09] MEDS ORDERED: OXYMETAZOLINE (AFRIN) 0.05% NA 15 ML BTL ONE (22:24)
[2017-08-09 22:28] LABS: PROTHROMBIN TIME PATIENT 13.5 SEC (12.2-14.7)
[2017-08-09 22:37] LABS: ALANINE AMINOTRANSFERASE 19 U/L (0-55); ALBUMIN 2.9 GM/DL (3.2-4.5); ALKALINE PHOSPHATASE 72 U/L (40-136); BILIRUBIN,TOTAL 0.2 MG/DL (0.1-1.0); BUN/CREATININE RATIO 25; CALCIUM 8.1 MG/DL (8.5-10.1); CARBON DIOXIDE 25 MMOL/L (21-32); CHLORIDE 99 MMOL/L (98-107); CREATININE SERUM 0.67 MG/DL (0.60-1.30); GFR ESTIMATED > 60; GLUCOSE 119 MG/DL (70-105); POTASSIUM 4.1 MMOL/L (3.6-5.0); SODIUM 132 MMOL/L (135-145)
--- NOTE | 2017-08-10 01:12 | ED General ---
General Chief Complaint: Oral/Throat Problems Stated Complaint: BLEEDING FROM TRACH AND MOUTH Nursing Triage Note: PT BROUGHT IN BY [facility] WITH C/O BLEEDING. PT HAS RECENT DX OF ORAL CA AND IS BLEEDING FROM MOUTH AND OUT HIS TRACHEOSTOMY. PT WAS SEEN AND TX IN THIS ED FOR SAME S/S 2 DAYS AGO. Nursing Sepsis Screen: No Definite Risk Source of Information: Patient, Family, Old Records Exam Limitations: No Limitations Allergies and Home Medications Allergies Coded Allergies: No Known Drug Allergies (Unverified , 07/06/17) Home Medications Lorazepam 1 Mg Tablet, 1 MG PO, (Reported) Ondansetron 4 Mg Tab.rapdis, 4 MG PO, (Reported) Past Vnzvhre-Ecmxvp-Yfkwkf Hx Patient Social History Alcohol Use: Denies Use Number of Drinks Today: Alcohol Beverage of Choice: Wine Recreational Drug Use: No Smoking Status: Never a Smoker 2nd Hand Smoke Exposure: No Recent Foreign Travel: No Contact w/Someone Who Travel: No Recent Infectious Disease Expo: No Recent Hopitalizations: No Seasonal Allergies Seasonal Allergies: No Surgeries History of Surgeries: Yes (TONGUE BIOPSY , FEEDING TUBE) Respiratory History of Respiratory Disorde: No Currently Using CPAP: No Cardiovascular History of Cardiac Disorders: No Neurological History of Neurological Disord: No Genitourinary History of Genitourinary Disor: No Gastrointestinal History of Gastrointestinal Di: No Musculoskeletal History of Musculoskeletal Dis: No Endocrine History of Endocrine Disorders: No HEENT History of HEENT Disorders: Yes (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) 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 Did You Recieve Any Treatments: Yes Type of Tx Receive: Chemotherapy, Surgical Intervention Psychosocial History of Psychiatric Problem: No Integumentary History of Skin or Integumenta: No Blood Transfusions History of Blood Disorders: No Adverse Reaction to a Blood Tr: No Family Medical History Family Medial History: Cardiac disorder 19 FATHER Physical Exam Vital Signs Vital Sign - Last 12Hours 08/09/17 21:44 Temp 97.1 Pulse 67 Resp 18 B/P (MAP) 112/66 (81) Pulse Ox 96 O2 Delivery Room Air Capillary Refill : Less Than 3 Seconds Progress/Results/Core Measures Suspected Sepsis Recent Fever Within 48 Hours: No Infection Criteria Present: None New/Unexplained Altered Menta: No Sepsis Screen: No Definite Risk Sepsis Diagnosis: SIRS Temperature:97.1 Pulse: 67 Respiratory Rate: 18 Laboratory Tests 08/09/17 22:05: White Blood Count 1.9L Blood Pressure 112 /66 Mean: 81 Laboratory Tests 08/09/17 22:05: Creatinine 0.67, INR Comment 1.0, Platelet Count 279, Total Bilirubin 0.2 Results/Orders Lab Results Laboratory Tests Test 08/09/17 22:05 Range/Units White Blood Count 1.9 L 4.3-11.0 10^3/uL Red Blood Count 2.78 L 4.35-5.85 10^6/uL Hemoglobin 7.4 L 13.3-17.7 G/DL Hematocrit 23 L 40-54 % Mean Corpuscular Volume 83 80-99 FL Mean Corpuscular Hemoglobin 27 25-34 PG Mean Corpuscular Hemoglobin Concent 32 32-36 G/DL Red Cell Distribution Width 16.7 H 10.0-14.5 % Platelet Count 279 130-400 10^3/uL Mean Platelet Volume 10.0 7.4-10.4 FL Neutrophils (%) (Auto) 68 42-75 % Lymphocytes (%) (Auto) 15 12-44 % Monocytes (%) (Auto) 10 0-12 % Eosinophils (%) (Auto) 6 0-10 % Basophils (%) (Auto) 1 0-10 % Neutrophils # (Auto) 1.3 L 1.8-7.8 X 10^3 Lymphocytes # (Auto) 0.3 L 1.0-4.0 X 10^3 Monocytes # (Auto) 0.2 0.0-1.0 X 10^3 Eosinophils # (Auto) 0.1 0.0-0.3 10^3/uL Basophils # (Auto) 0.0 0.0-0.1 10^3/uL Prothrombin Time 13.5 12.2-14.7 SEC INR Comment 1.0 0.8-1.4 Activated Partial Thromboplast Time 36 H 24-35 SEC Sodium Level 132 L 135-145 MMOL/L Potassium Level 4.1 3.6-5.0 MMOL/L Chloride Level 99 98-107 MMOL/L Carbon Dioxide Level 25 21-32 MMOL/L Anion Gap 8 5-14 MMOL/L Blood Urea Nitrogen 17 7-18 MG/DL Creatinine 0.67 0.60-1.30 MG/DL Estimat Glomerular Filtration Rate > 60 BUN/Creatinine Ratio 25 Glucose Level 119 H 70-105 MG/DL Calcium Level 8.1 L 8.5-10.1 MG/DL Total Bilirubin 0.2 0.1-1.0 MG/DL Aspartate Amino Transf (AST/SGOT) 18 5-34 U/L Alanine Aminotransferase (ALT/SGPT) 19 0-55 U/L Alkaline Phosphatase 72 40-136 U/L Total Protein 6.0 L 6.4-8.2 GM/DL Albumin 2.9 L 3.2-4.5 GM/DL My Orders Orders - FCO ORELLANA MD Chest 1 View, Ap/Pa Only (08/09/17 22:15) Oxymetazoline 0.05% Nasal [place] (Afrin 0. (08/09/17 22:24) Medications Given in ED Current Medications Medications Dose Ordered Sig/Kobe Route Start Time Stop Time Status Last Admin Dose Admin Oxymetazoline HCl 15 ml STK-MED ONCE .ROUTE 08/09/17 22:24 08/09/17 22:26 DC 08/09/17 22:30 15 ML Vital Signs/I&O Vital Sign - Last 12Hours 08/09/17 21:44 Temp 97.1 Pulse 67 Resp 18 B/P (MAP) 112/66 (81) Pulse Ox 96 O2 Delivery Room Air Capillary Refill : Less Than 3 Seconds Blood Pressure Mean: 81 Departure Impression Impression: Primary Impression: Oral hemorrhage Additional Impression: Tongue cancer Disposition: HOME, SELF-CARE Condition: Improved Departure-Patient Inst. Decision time for Depature: 01:00 Referrals: FABIAN OTT DO (PCP/Family) Primary Care Physician Patient Instructions: NO INSTRUCTIONS GIVEN Add. Discharge Instructions: If bleeding returns, spray 2 or 3 squirts of Afrin in the right side of your mouth. If this does not resolve bleeding, tobacco 1 or 2 of the [place] squares into the area of bleeding. If that does not resolve bleeding within 30 minutes, or if bleeding is severe, please return to the emergency room. Discuss other options with your specialty team on . All discharge instructions reviewed with patient and/or family. Voiced understanding. FCO ORELLANA MD Aug 10, 2017 01:12
[2017-08-10 01:20] VITALS: BP 106/61
--- NOTE | 2017-08-10 06:46 | Diagnostic Imaging Report ---
INDICATION: Hemoptysis. FINDINGS: Tracheostomy tube is present. Tube overlies the tracheal shadow. Lungs are well-aerated. There are no infiltrates. No pneumothorax or pleural effusion. There is moderate scoliosis convex to the right. The heart is mildly enlarged. There is no pulmonary edema. No pneumothorax or pleural effusion. Right PICC line is in good position. IMPRESSION: 1. Tracheostomy tube appear in good position. 2. No acute changes demonstrated. Dictated by: Dictated on workstation # [id number]
== END 2017-08-10 01:20 | disposition home or self-care (01) ==
LOC: EDUNIT# 21:44 → ER 21:45
DX: T81.89XA Other complications of procedures, not elsewhere classified, initial encounter (principal); C02.9 Malignant neoplasm of tongue, unspecified; K06.8 Other specified disorders of gingiva and edentulous alveolar ridge; Z93.0 Tracheostomy status; Z92.21 Personal history of antineoplastic chemotherapy
CPT/HCPCS: 36415; 71045; 80053; 85025; 85610; 85730; 86850; 86900; 86901

== ENCOUNTER 2017-08-14 21:59 | Emergency (ER) | payer MEDICARE, OTHER ==
[~2017-08-14] VITALS: Ht 175.3 cm; Wt 49.4 kg
[2017-08-14 22:13] LABS: BASOPHILS % (AUTO) 0 % (0-10); EOSINOPHILS # (AUTO) 0.2 10^3/uL (0.0-0.3); EOSINOPHILS % (AUTO) 7 % (0-10); HEMATOCRIT 23 % (40-54); HEMOGLOBIN 7.2 G/DL (13.3-17.7); LYMPHOCYTES # (AUTO) 0.3 X 10^3 (1.0-4.0); LYMPHOCYTES % (AUTO) 10 % (12-44); MEAN CORPUSCULAR HEMOGLOBIN 26 PG (25-34); MEAN CORPUSCULAR HGB CONC 31 G/DL (32-36); MEAN CORPUSCULAR VOLUME 84 FL (80-99); MEAN PLATELET VOLUME 9.9 FL (7.4-10.4); MONOCYTES # (AUTO) 0.1 X 10^3 (0.0-1.0); MONOCYTES % (AUTO) 4 % (0-12); NEUTROPHILS # (AUTO) 2.5 X 10^3 (1.8-7.8); NEUTROPHILS % (AUTO) 79 % (42-75); PLATELET COUNT 217 10^3/uL (130-400); RED BLOOD COUNT 2.74 10^6/uL (4.35-5.85); WHITE BLOOD COUNT 3.2 10^3/uL (4.3-11.0)
[2017-08-14] MEDS ORDERED: OXYMETAZOLINE (AFRIN) 0.05% NA 15 ML BTL ONE (22:14)
[2017-08-14 22:29] LABS: BUN/CREATININE RATIO 25; CARBON DIOXIDE 23 MMOL/L (21-32); CHLORIDE 102 MMOL/L (98-107); CREATININE SERUM 0.63 MG/DL (0.60-1.30); GFR ESTIMATED > 60; GLUCOSE 100 MG/DL (70-105); POTASSIUM 4.3 MMOL/L (3.6-5.0); SODIUM 134 MMOL/L (135-145)
--- NOTE | 2017-08-15 01:03 | ED General ---
General Chief Complaint: Oral/Throat Problems Stated Complaint: BLEEDING FROM TRACH Nursing Triage Note: bleeding from tracheostomy/mouth Nursing Sepsis Screen: No Definite Risk Source of Information: Patient, Old Records Exam Limitations: No Limitations Allergies and Home Medications Allergies Coded Allergies: No Known Drug Allergies (Unverified , 07/06/17) Home Medications Lorazepam 1 Mg Tablet, 1 MG PO, (Reported) Ondansetron 4 Mg Tab.rapdis, 4 MG PO, (Reported) Past Wvizcyw-Ewevsf-Vzsuil Hx Patient Social History Alcohol Use: Denies Use Number of Drinks Today: Alcohol Beverage of Choice: Wine Recreational Drug Use: No Smoking Status: Never a Smoker 2nd Hand Smoke Exposure: No Recent Foreign Travel: No Contact w/Someone Who Travel: No Recent Infectious Disease Expo: No Recent Hopitalizations: No Immunizations Up To Date Tetanus Booster (TDap): Unknown Seasonal Allergies Seasonal Allergies: No Surgeries History of Surgeries: Yes (TONGUE BIOPSY , FEEDING TUBE) Surgeries: Tracheostomy Respiratory History of Respiratory Disorde: No Currently Using CPAP: No Cardiovascular History of Cardiac Disorders: No Neurological History of Neurological Disord: No Genitourinary History of Genitourinary Disor: No Gastrointestinal History of Gastrointestinal Di: No Musculoskeletal History of Musculoskeletal Dis: No Endocrine History of Endocrine Disorders: No HEENT History of HEENT Disorders: Yes (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) 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 Did You Recieve Any Treatments: Yes Type of Tx Receive: Chemotherapy, Surgical Intervention Psychosocial History of Psychiatric Problem: No Integumentary History of Skin or Integumenta: No Blood Transfusions History of Blood Disorders: No Adverse Reaction to a Blood Tr: No Family Medical History Family Medial History: Cardiac disorder 19 FATHER Physical Exam Vital Signs Vital Sign - Last 12Hours 08/14/17 22:09 Temp 98.3 Pulse 58 Resp 18 B/P (MAP) 111/76 (88) Pulse Ox 97 O2 Delivery Room Air Capillary Refill : Less Than 3 Seconds Progress/Results/Core Measures Suspected Sepsis Recent Fever Within 48 Hours: No Infection Criteria Present: None New/Unexplained Altered Menta: No Sepsis Screen: No Definite Risk Sepsis Diagnosis: SIRS Temperature:98.3 Pulse: 58 Respiratory Rate: 18 Laboratory Tests 08/14/17 22:00: White Blood Count 3.2L Blood Pressure 111 /76 Mean: 88 Laboratory Tests 08/14/17 22:00: Creatinine 0.63, Platelet Count 217 Results/Orders Lab Results Laboratory Tests Test 08/14/17 22:00 Range/Units White Blood Count 3.2 L 4.3-11.0 10^3/uL Red Blood Count 2.74 L 4.35-5.85 10^6/uL Hemoglobin 7.2 L 13.3-17.7 G/DL Hematocrit 23 L 40-54 % Mean Corpuscular Volume 84 80-99 FL Mean Corpuscular Hemoglobin 26 25-34 PG Mean Corpuscular Hemoglobin Concent 31 L 32-36 G/DL Red Cell Distribution Width 17.0 H 10.0-14.5 % Platelet Count 217 130-400 10^3/uL Mean Platelet Volume 9.9 7.4-10.4 FL Neutrophils (%) (Auto) 79 H 42-75 % Lymphocytes (%) (Auto) 10 L 12-44 % Monocytes (%) (Auto) 4 0-12 % Eosinophils (%) (Auto) 7 0-10 % Basophils (%) (Auto) 0 0-10 % Neutrophils # (Auto) 2.5 1.8-7.8 X 10^3 Lymphocytes # (Auto) 0.3 L 1.0-4.0 X 10^3 Monocytes # (Auto) 0.1 0.0-1.0 X 10^3 Eosinophils # (Auto) 0.2 0.0-0.3 10^3/uL Basophils # (Auto) 0.0 0.0-0.1 10^3/uL Sodium Level 134 L 135-145 MMOL/L Potassium Level 4.3 3.6-5.0 MMOL/L Chloride Level 102 98-107 MMOL/L Carbon Dioxide Level 23 21-32 MMOL/L Anion Gap 9 5-14 MMOL/L Blood Urea Nitrogen 16 7-18 MG/DL Creatinine 0.63 0.60-1.30 MG/DL Estimat Glomerular Filtration Rate > 60 BUN/Creatinine Ratio 25 Glucose Level 100 70-105 MG/DL Calcium Level 8.0 L 8.5-10.1 MG/DL My Orders Orders - FCO ORELLANA MD Basic Metabolic Panel (08/14/17 22:01) Cbc With Automated Diff (08/14/17 22:01) Saline Lock/Iv-Start (08/14/17 22:01) Oxymetazoline 0.05% Nasal [place] (Afrin 0. (08/15/17 09:00) Oxymetazoline 0.05% Nasal [place] (Afrin 0. (08/14/17 22:14) Medications Given in ED Current Medications Medications Dose Ordered Sig/Kboe Route Start Time Stop Time Status Last Admin Dose Admin Oxymetazoline HCl 15 ml STK-MED ONCE .ROUTE 08/14/17 22:14 08/14/17 22:16 DC 08/14/17 22:18 15 ML Vital Signs/I&O Vital Sign - Last 12Hours 08/14/17 22:09 Temp 98.3 Pulse 58 Resp 18 B/P (MAP) 111/76 (88) Pulse Ox 97 O2 Delivery Room Air Capillary Refill : Less Than 3 Seconds Blood Pressure Mean: 88 Departure Impression Impression: Primary Impression: Oral hemorrhage Additional Impression: Tongue cancer Disposition: HOME, SELF-CARE Condition: Improved Departure-Patient Inst. Decision time for Depature: 01:00 Referrals: FABIAN OTT DO (PCP/Family) Primary Care Physician Patient Instructions: NO INSTRUCTIONS GIVEN Add. Discharge Instructions: If bleeding returns, spray 2 or 3 squirts of Afrin in the right side of your mouth. If this does not resolve bleeding, place 1 or 2 of the Gelfoam squares into the area of bleeding. If that does not resolve bleeding within 30 minutes , or if bleeding is severe, please return to the emergency room. Please schedule an appointment with Dr. Jerez. Call his office tomorrow. Keep your appointment at later this week. All discharge instructions reviewed with patient and/or family. Voiced understanding. FCO ORELLANA MD Aug 15, 2017 01:03
[2017-08-15 01:10] VITALS: BP 110/75
[2017-08-15] MEDS ORDERED: OXYMETAZOLINE (AFRIN) 0.05% NA 15 ML BTL SCH (09:00)
== END 2017-08-15 01:10 | disposition home or self-care (01) ==
LOC: EDUNIT# 21:59 → ER 22:00
DX: C02.9 Malignant neoplasm of tongue, unspecified (principal); R04.9 Hemorrhage from respiratory passages, unspecified; Z93.0 Tracheostomy status
CPT/HCPCS: 36415; 80048; 85025

== ENCOUNTER 2018-04-26 11:53 | Emergency (ER) | payer MEDICARE, OTHER ==
[~2018-04-26] VITALS: Ht 172.7 cm; Wt 67.6 kg
[~2018-04-26 11:53] MED LIST changes: +ONDA8TAB12 PO
--- NOTE | 2018-04-26 12:24 | ED GI ---
General Chief Complaint: Catheter/Drain/Tube Problems Stated Complaint: PEG TUBE CAME OUT Nursing Triage Note: ARRIVED VIA AMB TO ROOM 5 ET STATES HIS PEG TUBE CAME OUT TODAY. Sepsis Screen: No Definite Risk Source of Information: Patient Exam Limitations: No Limitations History of Present Illness Date Seen by Provider: Apr 26, 2018 Time Seen by Provider: 12:10 Initial Comments Patient is a 73 year old male who presents to the emergency room for complaints of his PEG tube falling out this morning. He was sent to the ER by Dr. Barraza who was here waiting his arrival. Timing/Duration: 1-3 Hours Associated Symptoms: Denies Symptoms Allergies and Home Medications Allergies Coded Allergies: No Known Drug Allergies (Unverified , 09/05/17) Home Medications Ondansetron HCl 8 Mg Tablet, 8 MG PO Q8H PRN for NAUSEA/VOMITING-1ST LINE, ( Reported) Patient Home Medication List Home Medication List Reviewed: Yes Review of Systems Review of Systems Constitutional: see HPI; No chills, No fever Gastrointestinal: See HPI, Other (peg tube fell out) All Other Systems Reviewed Negative Unless Noted: Yes Past Bozwotz-Tnavuo-Mdmgqu Hx Past Med/Social Hx: Reviewed Nursing Past Med/Soc Hx Patient Social History Alcohol Beverage of Choice: Wine 2nd Hand Smoke Exposure: No Recent Foreign Travel: No Contact w/Someone Who Travel: No Recent Infectious Disease Expo: No Recent Hopitalizations: Yes (JUN) Immunizations Up To Date Tetanus Booster (TDap): Unknown Seasonal Allergies Seasonal Allergies: No Past Medical History Surgeries: Yes (TONGUE BIOPSY , FEEDING TUBE) Tracheostomy Respiratory: No Currently Using CPAP: No Cardiac: No Neurological: No Genitourinary: No Gastrointestinal: Yes (PEG TUBE) Musculoskeletal: No Endocrine: No HEENT: Yes (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 7.0oz. 67.081868rh; 15.4 BMI Method:Stated General Appearance: WD/WN, no apparent distress Neck: non-tender, full range of motion, supple, normal inspection Respiratory: chest non-tender, lungs clear, normal breath sounds, no respiratory distress, no accessory muscle use Cardiovascular: normal peripheral pulses, regular rate, rhythm, no edema, no gallop, no JVD, no murmur Gastrointestinal: normal bowel sounds, non tender, soft, no organomegaly, no pulsatile mass, other Neurologic/Psychiatric: alert, normal mood/affect, oriented x 3 Skin: normal color Progress/Results/Core Measures Results/Orders My Orders Orders - VINI BULLOCK Peg Tube Check (04/26/18 12:17) Diatrizoate Meglum/Sodium 37% (Gastrogra (04/26/18 12:45) Vital Signs/I&O 04/26/18 04/26/18 11:53 13:25 Temp 98.0 Pulse 79 77 Resp 16 16 B/P (MAP) 127/97 (107) 116/75 Pulse Ox 96 97 O2 Delivery Room Air Room Air Blood Pressure Mean: 107 Progress Progress Note : Time: 12:20 Progress Note I have seen and evaluated the patient. I have assisted Dr. Barraza in replacing the feeding tube. The patient required an 18fr PEG tube and there was not one on hand so Dr. Barraza used an 18fr george catheter. Tube placement was confirmed by X-Ray. The patient agrees with plans for discharge. Return precautions were given. Diagnostic Imaging Diagonstic Imaging: Xray Plain Films/CT/US/NM/MRI: abdomen Comments NAME: ANOOP BALLESTEROS [facility] REC#: [id number] PHYSICIAN: VINI BULLOCK CC: ATUL BULLOCK STEPHEN D MD Page 1 of 1 RADIOLOGY REPORT VIA [facility]. [place], [place] CC: VINI BULLOCK; SUZETTE JAEGER MD Page 1 of 1 RADIOLOGY REPORT NAME: ANOOP BALLESTEROS [facility] REC#: [id number] PT STATUS: DEP ER : 1945 PHYSICIAN: VINI BULLOCK ADMIT DATE: 04/26/18/ER Signed Date of Exam: 04/26/18 PEG TUBE CHECK Indication: PEG tube replaced. The patient's PEG tube was injected with 30 cc of Gastrografin contrast. Radiograph of the abdomen was obtained. Contrast is seen within the stomach. No extravasation of contrast is seen. Impression: Satisfactory PEG tube location. Dictated by: Dictated on workstation # [id number] Dict: 04/26/18 1244 Trans: 04/26/18 1538 Interpreted by: SUZETTE JAEGER MD Electronically signed by: SUZETTE JAEGER MD 04/26/18 1538 Reviewed: Reviewed by Me Departure Impression Primary Impression: Visit for feeding tube placement Disposition: HOME, SELF-CARE Condition: Stable/Unchanged Departure-Patient Inst. Decision time for Depature: 12:20 Referrals: LO BARRAZA RICHARD A DO (PCP/Family) Primary Care Physician Patient Instructions: NO INSTRUCTIONS GIVEN Add. Discharge Instructions: Use the George catheter that was placed by Dr. Barraza to continue your tube feedings at home. Follow-up with his office within 1 week for recheck. Return back to the emergency room for any worsening symptoms or concerns as needed. All discharge instructions reviewed with patient and/or family. Voiced understanding. VINI BULLOCK Apr 26, 2018 12:24
[2018-04-26] MEDS ORDERED: DIATRIZOATE MEGLUM/SODIUM 37% 120 ML (GASTROGRAFIN) NG ONE (12:45)
--- NOTE | 2018-04-26 12:48 | Diagnostic Imaging Report ---
Indication: PEG tube replaced. The patient's PEG tube was injected with 30 cc of Gastrografin contrast. Radiograph of the abdomen was obtained. Contrast is seen within the stomach. No extravasation of contrast is seen. Impression: Satisfactory PEG tube location. Dictated by: Dictated on workstation # [id number]
[2018-04-26 13:25] VITALS: BP 116/75
--- NOTE | 2018-04-27 11:55 | Consultation ---
History of Present Illness History of Present Illness Patient Consulted On(joanna/time) 04/26/18 11:50 Date Seen by Provider: Apr 27, 2018 Time Seen by Provider: 11:50 History of Present Illness Patient seen in ED Patient with gastrostomy tube that just has fallen out. Was having some pain in it the last day or so. Patient with no other complaints. Denies n/v fever sweats chills shortness of breath or chest pain. Allergies and Home Medications Allergies Coded Allergies: No Known Drug Allergies (Unverified , 09/05/17) Home Medications Ondansetron HCl 8 Mg Tablet, 8 MG PO Q8H PRN for NAUSEA/VOMITING-1ST LINE, ( Reported) Patient Home Medication List Home Medication List Reviewed: Yes Past Dyndcpq-Dbbbrj-Htqqwd Hx Patient Social History Alcohol Use: Occasionally Uses Recreational Drug Use: No 2nd Hand Smoke Exposure: No Recent Foreign Travel: No Contact w/Someone Who Travel: No Recent Infectious Disease Expo: No Recent Hopitalizations: Yes (DEC) Immunizations Up To Date Tetanus Booster (TDap): Unknown Seasonal Allergies Seasonal Allergies: No Surgeries History of Surgeries: Yes (TONGUE BIOPSY , FEEDING TUBE) Surgeries: Tracheostomy Respiratory History of Respiratory Disorde: No Cardiovascular History of Cardiac Disorders: No Neurological History of Neurological Disord: No Genitourinary History of Genitourinary Disor: No Gastrointestinal History of Gastrointestinal Di: Yes (PEG TUBE) Musculoskeletal History of Musculoskeletal Dis: No Endocrine History of Endocrine Disorders: No HEENT History of HEENT Disorders: Yes (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) 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 Psychosocial History of Psychiatric Problem: No Integumentary History of Skin or Integumenta: No Blood Transfusions History of Blood Disorders: No Adverse Reaction to a Blood Tr: No Family Medical History Significant Family History: No Pertinent Family Hx Family Medial History: Cardiac disorder 19 FATHER Review of Systems-General Gastrointestinal: see HPI All Other Systems Reviewed Negative Unless Noted: Yes (Negative excepted noted.) Physical Exam-General Problems Physical Exam Vital Signs Vital Signs - First Documented 04/26/18 11:53 Temp 98.0 Pulse 79 Resp 16 B/P (MAP) 127/97 (107) Pulse Ox 96 O2 Delivery Room Air Capillary Refill : Less Than 3 Seconds General Appearance: no apparent distress HEENT: PERRL/EOMI Neck: supple (trach) Respiratory: no respiratory distress, no accessory muscle use Cardiovascular: regular rate, rhythm Gastrointestinal: non tender (slight yeast around gastrostomy tube), soft Rectal: deferred Back: normal inspection Extremities: normal range of motion, non-tender 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 some slight yeast irritation continue with antifungal that currently using. patient had 18 Fr Wisdom catheter inserted without difficulty through gastrostomy opening by me without difficulty. getting Tube check by Gastrografin and abdominal x ray if in place okay to ga home. LO BARRAZA DO Apr 27, 2018 11:55
== END 2018-04-26 13:25 | disposition home or self-care (01) ==
LOC: EDUNIT# 11:53 → ER 11:54
DX: K94.23 Gastrostomy malfunction (principal); Z93.0 Tracheostomy status; Z85.818 Personal history of malignant neoplasm of other sites of lip, oral cavity, and pharynx; Z92.21 Personal history of antineoplastic chemotherapy; Z82.49 Family history of ischemic heart disease and other diseases of the circulatory system
CPT/HCPCS: 43760; 49465

== ENCOUNTER 2018-04-30 00:03 | Emergency (ER) | payer MEDICARE, OTHER ==
[~2018-04-30] VITALS: Ht 172.7 cm; Wt 67.8 kg
--- NOTE | 2018-04-30 00:27 | ED GI ---
General Chief Complaint: Catheter/Drain/Tube Problems Stated Complaint: PEG TUBE ISSUES Source of Information: Patient, Spouse Exam Limitations: No Limitations History of Present Illness Date Seen by Provider: Apr 30, 2018 Time Seen by Provider: 00:05 Initial Comments The patient presents to the ER by private conveyance with chief complaint that Tuesday, 3 days ago he had a PEG tube displaced and had it replaced here in the ER with an 18 Indian Wisdom catheter because they did not have a MAKSIM tube available at that time. Patient says that the today it's become sucked down and won't retract and spin discomfortable. He's not taken anything for it. He's called the surgeon who did the original PEG tube and while the surgeon did not think there is any cause for alarm he has told the patient cannot the ER to be evaluated if it's causing him distress. Patient's having no nausea vomiting. He has had some loose stools which cleared up yesterday. He's taking pro-Gautam by Wisdom catheter gastrostomy tube. He also has been using some protein supplements from [facility] that he's used in the past few years. He does not take any extra fiber. He started having a little loose mushy stool again today. Because of this 2 days ago he stopped using the Levaquin that he been on 500 mg daily for 2 weeks and started taking twice a day probiotics as well. He's not had any fevers chills or other significant abdominal pain. Allergies and Home Medications Allergies Coded Allergies: No Known Drug Allergies (Unverified , 09/05/17) Home Medications Ondansetron HCl 8 Mg Tablet, 8 MG PO Q8H PRN for NAUSEA/VOMITING-1ST LINE, ( Reported) Patient Home Medication List Home Medication List Reviewed: Yes Review of Systems Review of Systems Constitutional: No chills, No diaphoresis EENTM: No Blurred Vision, No Double Vision Respiratory: Denies Cough, Denies Shortness of Air Cardiovascular: Denies Chest Pain, Denies Edema, Denies Irregular Heart Rate Gastrointestinal: See HPI; Denies Abdomen Distended; Abdominal Pain; Denies Blood Streaked Stools, Denies Difficulty Swallowing Musculoskeletal: No back pain, No joint pain Past Ofjmzbp-Sxohgn-Ebopif Hx Patient Social History Alcohol Use: Regular Use Alcohol Beverage of Choice: Wine 2nd Hand Smoke Exposure: No Recent Foreign Travel: No Contact w/Someone Who Travel: No Recent Hopitalizations: Yes (DEC) Immunizations Up To Date Tetanus Booster (TDap): Unknown Seasonal Allergies Seasonal Allergies: No Past Medical History Surgeries: Yes (TONGUE BIOPSY , FEEDING TUBE) Tracheostomy Respiratory: No Currently Using CPAP: No Cardiac: No Neurological: No Genitourinary: No Gastrointestinal: Yes (PEG TUBE) Musculoskeletal: No Endocrine: No HEENT: Yes (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 7.0oz. 67.921803gw; 15.4 BMI Method:Stated General Appearance: WD/WN, no apparent distress Neck: other (trach tube in place with speaking valve.) Respiratory: no respiratory distress, no accessory muscle use Cardiovascular: normal peripheral pulses, regular rate, rhythm Gastrointestinal: non tender, soft, other (gastrostomy with white thick cream antifungal and gauze and small amount of yellowish drainage on the gauze. Wisdom [address] tight against the "Y") Neurologic/Psychiatric: alert, normal mood/affect, oriented x 3 Skin: normal color, warm/dry Progress/Results/Core Measures Results/Orders My Orders Orders - KASIA RICHARDS Diatrizoate Meglum/Sodium 37% (Gastrogra (04/30/18 00:30) Abdomen/Kub 1view (04/30/18 00:18) Medications Given in ED Current Medications Medications Dose Ordered Sig/Kobe Route Start Time Stop Time Status Last Admin Dose Admin Diatrizoate Meglum/ Diatrizoate Sod 30 ml ONCE ONCE NG 04/30/18 00:30 04/30/18 00:31 DC 04/30/18 00:20 30 ML Vital Signs/I&O 04/30/18 00:05 Temp 98.5 Pulse 84 Resp 16 B/P (MAP) 128/65 (86) Pulse Ox 94 O2 Delivery Room Air Progress Progress Note : Time: 00:42 Progress Note We obtained 2 views of the upright KUB after injecting 30 cc of Gastrografin. Looks like the Gastrografin is mixing in with a stomach contents on the second view. Does not appear that the tube is in the duodenum raising close to the pylorus. Withdrew 10 cc of saline from the Wisdom bulb and pull the Wisdom back easily and it stayed in place and then 3 inserted a 10 cc of normal saline into the Wisdom bulb. The Wisdom is no longer held tight against the abdominal wall and the patient's discomfort in his abdomen is nearly resolved. The Wisdom bulb may have gotten down by the pylorus and they are peristalsis been held in place by spasm however draining the vulva and withdrawing the Wisdom 6 cm has saw this. The second x-ray was after the Wisdom bulb was drained and then re- inflated. Placement seems to be good. We are going to let him follow-up with Gen. surgery Tuesday. Departure Impression Primary Impression: Gastrostomy complication, unspecified Disposition: HOME, SELF-CARE Condition: Improved Departure-Patient Inst. Decision time for Depature: 00:44 Referrals: FABIAN OTT DO (PCP/Family) Primary Care Physician Patient Instructions: How to Care for Your PEG Tube Add. Discharge Instructions: Follow-up with the general surgeon Tuesday morning. All discharge instructions reviewed with patient and/or family. Voiced understanding. Copy Copies To 1: LO BARRAZA TITUS J Apr 30, 2018 00:27
[2018-04-30] MEDS ORDERED: DIATRIZOATE MEGLUM/SODIUM 37% 120 ML (GASTROGRAFIN) NG ONE (00:30)
[2018-04-30 01:00] VITALS: BP 128/65
--- NOTE | 2018-04-30 06:56 | Diagnostic Imaging Report ---
INDICATION: G-tube replacement. COMPARISON: None FINDINGS: 2 frontal radiographic views of the abdomen were obtained after injection of 30 cc of Gastrografin through the gastrostomy tube. Contrast is seen opacifying multiple loops of small bowel. Tube appears to be patent. There is no appreciable extravasation. IMPRESSION: 1. Indwelling percutaneous gastrostomy versus jejunostomy tube is patent. Dictated by: Dictated on workstation # [id number]
== END 2018-04-30 01:00 | disposition home or self-care (01) ==
LOC: EDUNIT# 00:03 → ER 00:04
DX: K94.29 Other complications of gastrostomy (principal); Z93.0 Tracheostomy status; Z85.818 Personal history of malignant neoplasm of other sites of lip, oral cavity, and pharynx; Z92.21 Personal history of antineoplastic chemotherapy; Z82.49 Family history of ischemic heart disease and other diseases of the circulatory system
CPT/HCPCS: 74018

== ENCOUNTER 2019-04-01 21:14 | Emergency (ER) | payer MEDICARE, OTHER ==
[~2019-04-01] VITALS: Ht 172.7 cm; Wt 67.8 kg
[2019-04-01] MEDS ORDERED: SODIUM BICARB 8.4% 50 MEQ/50 ML VIAL IV ONE (21:19)
[2019-04-01] MEDS ORDERED: EPINEPHrine INJECTION 1 MG/ML AMP IM/IV/SC ONE (21:19)
[2019-04-01] MEDS ORDERED: NS 1000 ML IV BAG IV ONE (21:19)
--- NOTE | 2019-04-01 21:35 | NUR ---
pastoral care called informed of code in e.d.
--- NOTE | 2019-04-01 22:42 | ED CPR ---
HPI-CPR General Chief Complaint: Code Blue Stated Complaint: CODE BLUE Source of Information: Patient Exam Limitations: No Limitations History of Present Illness Date Seen by Provider: Apr 01, 2019 Time Seen by Provider: 21:14 Initial Comments Here by EMS with report of cardiopulmonary arrest. Apparently he was in the bathroom and passed out or went down. He had significant amount of blood from his trachea in mouth. EMS was summoned. They got there and patient had barely palpable heart rate at a low rate of 20 or less. They rapidly moved him to the ambulance and he lost pulses and went into asystole. Significant amount of blood noted from tracheostomy tube in mouth continued. He did initiate CPR and placed IV O2 the left tibia. Emergent transport to the hospital ensued. He did get epinephrine 1 mg IV 2 by EMS with CPR continuing. They only noted asystole on the monitor. Patient does have significant history of throat cancer with history of surgical excision, chemotherapy, and tracheostomy placement. He is a patient of Dr. Cristobals. Initial Complaints: Collapsed Witnessed Arrest: Yes Bystander CPR: No Down-Time Before ACLS: 0 Paramedics Initial Findings: Weak Pulse Paramedics' Initial Vital Sign: heart rate of 10 Pre Hospital Treatment: Bag Valve Mask, CPR/Thumper, Oxygen, Epinephrine (mg) (2) Allergies and Home Medications Allergies Coded Allergies: No Known Drug Allergies (Unverified , 09/05/17) Home Medications Ondansetron HCl 8 Mg Tablet, 8 MG PO Q8H PRN for NAUSEA/VOMITING-1ST LINE, (Reported) Patient Home Medication List Home Medication List Reviewed: Yes Review of Systems Review of Systems Constitutional: see HPI Other Comments Unable to complete review of systems due to cardiopulmonary arrest Past [id number] Hx Past Med/Social Hx: Reviewed Nursing Past Med/Soc Hx Patient Social History Alcohol Beverage of Choice: Wine 2nd Hand Smoke Exposure: No Recent Foreign Travel: No Contact w/Someone Who Travel: No Recent Hopitalizations: No Immunizations Up To Date Tetanus Booster (TDap): Unknown Seasonal Allergies Seasonal Allergies: No Past Medical History Surgeries: Yes (TONGUE BIOPSY , FEEDING TUBE) Tracheostomy Respiratory: No Currently Using CPAP: No Cardiac: No Neurological: No Genitourinary: No Gastrointestinal: Yes (PEG TUBE) Musculoskeletal: No Endocrine: No HEENT: Yes (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) Cancer: Yes (TONGUE) Oral Did You Recieve Any Treatments: Yes What Type of Treatment Did You: Chemotherapy, Surgical Intervention Psychosocial: No Integumentary: No Blood Disorders: No Adverse Reaction/Blood Tranf: No Family Medical History Reviewed Nursing Family Hx Cardiac disorder 17 FATHER No Pertinent Family Hx Physical Exam Vital Signs Vital Signs - First Documented 04/01/19 23:52 Pulse 0 Resp 0 B/P (MAP) 0/0 (0) Pulse Ox 0 Capillary Refill : Height, Weight, BMI Height: 5'8.00" Weight: 149lbs. 7.0oz. [id number]; 15.4 BMI Method:Stated General Appearance: Cachetic, Thin, Other (cardiopulmonary arrest) HEENT: Other (pupils fixed and dilated) Neck: Other (trachea midline with bleeding and blood noted around trachea and in mouth) Respiratory: Other (coarse with bagging) Cardiovascular: Other (asystole) Neurologic/Psychiatric: Other (unresponsive in cardiopulmonary arrest) Skin: Cool, Pallor Progress/Results/Core Measures Results/Orders Vital Signs/I&O 04/01/19 04/01/19 21:14 23:52 Pulse 0 Resp 0 B/P (MAP) 0/0 (0) Pulse Ox 0 Progress Progress Note : Progress Note Seen on arrival by EMS. Patient in cardiopulmonary arrest with no pulse and asystole on monitor. CPR continued. Bleeding continued from the area of the trachea. Epinephrine 1 mg IV given at next pulse check. Patient very difficult to bag and blood clots noted in mouth. Tracheostomy tube was replaced due to difficulty with suctioning and blood clot noted within tube. 2127: Patient has received a second milligram of epinephrine and compressions were continued. Patient remains in asystole. Ultrasound showed occasional beat but otherwise no activity. We did resume CPR and epinephrine and sodium bicarbonate given. 2135: We are getting improved oxygen saturations with CPR but patient remains in asystole/PEA with low bradycardia rate. Continue CPR. Family is here and I have talked with her. Informed of the high likelihood of poor outcome. We will continue at this point. Patient does have significant clotting within the trachea. Due to the significant amount of bleeding that seems to be persisting we have added PEEP to see if that will help with oxygenation and controlling airway. 2143: Subcutaneous emphysema noted on the left side of the neck and face. 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 We have removed the tracheostomy tube and inserted endotracheal tube deeper in an effort to continue resuscitation. Patient remains in asystole with continuous bleeding and clots in the trachea. At this point I believe it's futile to continue and CPR was discontinued at 2143 and ultrasound shows no cardiac activity. Time of 2143. I did discuss all of this with the family. Business Account Leader at family's side. All questions answered. I will send a copy of the chart to Dr. Escobar. certificate Dr. Escobar to sign. This was discussed with the home as well. Please see nursing note for additional time frames. Departure Impression Primary Impression: Cardiopulmonary arrest Additional Impressions: Throat cancer Tracheal hemorrhage Disposition: 20 Condition: Departure-Patient Inst. Decision time for Depature: 21:44 Referrals: FABIAN ESCOBAR DO (PCP/Family) Primary Care Physician Copy Copies To 1: FABIAN ESCOBAR TIMOTHY D MD Apr 01, 2019 22:42
[2019-04-01 23:52] VITALS: BP 0/0
== END 2019-04-01 23:52 | disposition expired ==
LOC: EDUNIT# 21:17 → ER 21:18
DX: I46.9 Cardiac arrest, cause unspecified (principal); C14.0 Malignant neoplasm of pharynx, unspecified; R04.89 Hemorrhage from other sites in respiratory passages; Z93.0 Tracheostomy status
CPT/HCPCS: 36680